=== PATIENT | female | born 1990 | race Caucasian/White ===

== ENCOUNTER → 2017-06-10 | Outpatient (CLI) | payer MEDICAID ==
[~2017-06-10] MED LIST: FERR325T18 PO; TRICTAB PO
== END ==
LOC: HPND 10:15
PROVIDERS: ATTEND Family Medicine
DX: O26.842 Uterine size-date discrepancy, second trimester (principal)
CPT/HCPCS: 76805

== ENCOUNTER 2017-11-06 12:14 | Inpatient (IN) ==
[~2017-11-06 12:14] MED LIST changes: -FERR325T18 PO; +Ketorolac Inj 30 MG/ML (IVP) Vial IV.PUSH ONE; +Phenylephrine/NS 1000 MCG/10ML Syringe IV.PUSH ONE; -TRICTAB PO
[2017-11-06] MEDS ORDERED: Citric Acid/Sodium Citrate Liq 30 ML UDC PO SCH (12:30)
--- NOTE | 2017-11-06 12:44 | P.HPOB ---
History of Present Illness Primary Care Physician: Anna Avina MD, R2 History of Present Illness: 27-year-old female, at 40 weeks gestation, history of previous for breech 1, presents for repeat scheduled today. She denies any contractions. Denies any leakage of fluid. Denies any vaginal bleeding. Positive movement. - Inpatient Certification I certify that the inpatient services were ordered in accordance with Medicare regulations governing the order. This includes certification that hospital inpatient services are reasonable and necessary and in the case of services not specified as inpatient-only under 42 CFR 419.22(n), that they are appropriately provided as inpatient services in accordance to with the 2-midnight benchmark under 43 CFR 412.3(e) Estimated Total Length of Stay (Days): 3 Plans for Post Hospital Care: Home Review of Systems All other systems reviewed negative except as stated in HPI PMFSH - History History Provided By: Patient - Medical / Surgical Hx Neg / Unobtainable Medical Problems Denied: Yes - Medical History Medical History: Medical History (Last Updated 11/06/17 @ 12:43 by Anna Avina MD, R2) Anemia affecting Rh negative state in antepartum period - Surgical History Surgical History: Surgical History (Last Updated 11/06/17 @ 12:43 by Anna Avina MD, R2) Previous section - Tobacco History Second Hand Smoke Exposure: No Tobacco Use In Past 30 Days: No Smoking Status: Never smoker - Alcohol History How Often Do You Have a Drink Containing Alcohol: Never - Substance Use History Substance History: No History of Abuse - Travel History History of Recent Travel: No Recent Travel in the [place] Within the Last 8 Weeks: No Recent Travel Out of the Country Within the Last 8 Weeks: No Medications and Allergies Active Medications: Active Medications Citric Acid/Sodium Citrate (Sodium Citrate/Citric Acid Liq) 30 ml PO [employer] TARA Stop: 11/10/17 12:29 Cefazolin Sodium 2,000 mg/ (Sodium Chloride) 100 mls @ 200 mls/hr IV.SIG [employer] TARA Stop: 11/10/17 12:59 Lactated Ringer's (Lr 1000 Ml Inj) 1,000 mls @ 2,000 mls/hr IV.SIG .Q30M ONE Stop: 11/06/17 12:47 Lactated Ringer's (Lr 1000 Ml Inj) 1,000 mls @ 150 mls/hr IV.CONT .Q6H40M TARA Allergies Allergy/AdvReac Type Severity Reaction Status Date / Time No Known Allergies Allergy Verified 11/06/17 13:01 Exam Vital signs: Vital Signs 11/06/17 12:29 Temperature 98.1 F Pulse Rate 92 H Respiratory Rate 18 Blood Pressure 131/86 Narrative: FH: 41 - Constitutional no acute distress - Routine Respiratory Exam Present: CTA bilaterally - Routine Cardiovascular Exam Present: RRR, S1, S2 - Routine Extremities Exam Present: normal capillary refill. Absent: edema, calf tenderness Results - Labs CBC & Chem 7: 11/06/17 12:55 Caprini VTE Risk Assessment Caprini VTE Risk Assessment: No/Low Risk (score <= 1) Caprini Risk Assessment Model: Point Value = 1 Point Value = 2 Point Value = 3 Point Value = 5 Age 41-60 Minor surgery BMI > 25 kg/m2 Swollen legs Varicose veins or History of unexplained or recurrent spontaneous Oral contraceptives or hormone replacement Sepsis (< 1 month) Serious lung disease, including pneumonia (< 1 month) Abnormal pulmonary function Acute myocardial infarction Congestive heart failure (< 1 month) History of inflammatory bowel disease Medical patient at bed rest Age 61-74 Arthroscopic surgery Major open surgery (> 45 min) Laparoscopic surgery (> 45 min) Malignancy Confined to bed (> 72 hours) Immobilizing plaster cast Central venous access Age >= 75 History of VTE Family history of VTE Factor V Leiden Prothrombin [id number] Lupus anticoagulant Anticardiolipin antibodies Elevated serum homocysteine Heparin-induced thrombocytopenia Other congenital or acquired thrombophilia Stroke (< 1 month) Elective arthroplasty Hip, pelvis, or leg fracture Acute spinal cord injury (< 1 month) Prophylaxis Regimen: Total Risk Factor Score Risk Level Prophylaxis Regimen 0-1 Low Early ambulation 2 Moderate Order ONE of the following: *Sequential Compression Device (SCD) *Heparin 5000 units SQ BID 3-4 Higher Order ONE of the following medications: *Heparin 5000 units SQ TID *Enoxaparin/Lovenox 40 mg SQ daily (WT < 150 kg, CrCl > 30 mL/min) *Enoxaparin/Lovenox 30 mg SQ daily (WT < 150 kg, CrCl > 10-29 mL/min) *Enoxaparin/Lovenox 30 mg SQ BID (WT < 150 kg, CrCl > 30 mL/min) AND/OR *Sequential Compression Device (SCD) 5 or more Highest Order ONE of the following medications: *Heparin 5000 units SQ TID (Preferred with Epidurals) *Enoxaparin/Lovenox 40 mg SQ daily (WT < 150 kg, CrCl > 30 mL/min) *Enoxaparin/Lovenox 30 mg SQ daily (WT < 150 kg, CrCl > 10-29 mL/min) *Enoxaparin/Lovenox 30 mg SQ BID (WT < 150 kg, CrCl > 30 mL/min) AND *Sequential Compression Device (SCD) Assessment and Plan - Diagnosis (1) Code(s): Z34.90 - Encounter for supervision of normal , unspecified, unspecified trimester Status: Acute (2) Previous section complicating , with delivery Code(s): O34.219 - Maternal care for unspecified type scar from previous delivery Status: Acute - Plan 27-year-old female, at 40 weeks gestation, history of previous for breech 1, presents for repeat scheduled today. REPEAT C/S -N.p.o. since midnight -Scheduled for at 2 PM -Preoperative antibiotics initiated Rh negative -Status post RhoGam at 28 weeks -Need RhoGam within 72 hours Anemia of -Initial hemoglobin on admission 10.2 -Follow-up CBC GBS positive -Standard preoperative antibiotics as above
[2017-11-06] MEDS ORDERED: ceFAZolin Inj 2,000 MG in Sodium Chlor 0.9% Inj 80 ML IV.SIG SCH ×2 (13:00→22:00)
[2017-11-06 13:10] LABS: Bacteria,Urine Rare /hpf; Bilirubin,Urine Negative (Negative); Clarity,Urine Hazy (Clear); Color,Urine Yellow (Yellw/Straw); Glucose,Urine (UA) Negative (Negative); Leukocyte Esterase,Urine Negative (Negative); Mucus,Urine Few /lpf (Occasional); Nitrite,Urine Negative (Negative); Specific Gravity,Urine 1.005 (1.002-1.035); Squamous Epithelial Cell,Urine 10 /hpf (0-5)
[2017-11-06 13:11] LABS: Baso % (Auto) 0.2 % (0.0-2.0); Eos # (Auto) 0.1 th/mm3 (0.0-0.4); Eos % (Auto) 0.4 % (0.0-4.0); Hematocrit 32.6 % (35.0-46.0); Hemoglobin 10.2 gm/dL (11.6-15.3); Mean Corpuscular HGB Conc 31.4 % (32.0-36.0); Mean Corpuscular Volume 79.6 fL (80.0-100.0); Mean Platelet Volume 9.6 fL (7.0-11.0); Mono # (Auto) 0.7 th/mm3 (0.0-0.9); Neut # (Auto) 9.5 th/mm3 (1.8-7.7); Neut % (Auto) 77.4 % (16.0-70.0); Platelet Count 392 th/mm3 (150-450); Red Cell Distribution Width 15.9 % (11.6-17.2); White Blood Count 12.3 th/mm3 (4.0-11.0)
[2017-11-06 13:23] LABS: Amphetamine Screen,Urine Neg (Neg); Barbiturate Screen,Urine Neg (Neg); Cannabinoid Screen,Urine Neg (Neg); Cocaine Screen,Urine Neg (Neg); Opiate Screen,Urine Neg (Neg)
[2017-11-06] MEDS ORDERED: Morphine Sulfate PF Inj 5 MG/10 ML Ampul ONE (13:48)
[2017-11-06 13:49] LABS: Platelet Estimate Normal (Normal); Platelet Morphology Normal (Normal)
[2017-11-06] MEDS ORDERED: ceFAZolin 2 GM Premix Inj 2 GM/50 ML PIGGYBACK IV.SIG ONE (14:00)
[2017-11-06] MEDS ORDERED: Oxytocin 30 Units/500ml Premix 30 UNITS/500 ML BAG IV.SIG ONE (15:36)
[2017-11-06] MEDS ORDERED: Simethicone 80 MG Chew Tablet PO PRN (15:36)
[2017-11-06] MEDS ORDERED: Senna/Docusate Sodium 8.6/50 MG Tablet PO PRN (15:36)
--- NOTE | 2017-11-06 16:04 | P.OP ---
- Preoperative Diagnosis (1) Previous section complicating , with delivery - Postoperative Diagnosis (1) Previous section complicating , with delivery Comment: Patient is a 39 week intrauterine previous for repeat section refuses Date of procedure: 11/06/17 Procedure: Repeat low transverse section Anesthesia: regional Surgeon: Jomar Pearson MD Hide Shaker: [facility]. [facility] Estimated blood loss (mL): 500 IV fluids (mL): 1,000 Urine output (mL): 100 Pathology: none sent Operation and Findings: Patient was taken the operating room placed supine position on the table after adequate spinal anesthesia the patient was prepped and draped for abdominal surgery. Previous Pfannenstiel incision was excised out of the cast off. Incision carried the fascia sharply and the fascia incised laterally in the usual fashion. The fascia reflected off the rectus muscle. Peritoneal cavity entered bluntly and incision extended superior and inferiorly. The bladder blade placed lower the incision and the parietal peritoneum reflected off the lower uterine segment sharply. Bladder was placed behind the bladder blade and a transverse hysterotomy was made and extended bluntly bilaterally, amniotic fluid clear baby delivered from a cephalic presentation without difficulty male weight 3625 g 9 /9 there were no complications. Cord blood obtained the delayed cord clamping was done. The placenta then manually extracted without difficulty. The uterus exteriorized cleaned of all remnants of membranes. The cervix dilated. The hysterotomy closed in a running layer of 0 chromic followed by imbricating suture of the same hemostasis achieved with a couple stick ties. Bladder reapproximated with a running suture 2-0 Vicryl. Uterus elevated ovaries and tubes noted to be normal. The blood suctioned cul-de-sac the uterus replaced in the peritoneal cavity. Gutters evaluated noted to be within normal limits. The parietal peritoneum closed in a running layer of 2-0 Vicryl. Rectus muscle reapproximated with stick ties of chromic Vicryl. The fascia closed in running layer of 0 Vicryl. Subcutaneous tissues closed with a running 3-0 plain catgut suture. The skin closed with a José Miguel needle 3-0 Monocryl suture subcutaneously. Steri-Strips pressure dressing applied. At my blood loss 500 cc with no complications sponge and needle correct 2 and the patient to recovery in stable condition the significant dictation
[2017-11-06] MEDS ORDERED: Naloxone Inj 0.4 MG/ML Vial IV.PUSH PRN (17:17)
[2017-11-06] MEDS ORDERED: Oxytocin 30 Units/500ml Premix 30 UNITS/500 ML BAG IV.SIG PRN (20:36)
[2017-11-06] MEDS: ceFAZolin 2 GM Premix Inj 2 GM/50 ML PIGGYBACK IV.SIG SCH (22:53)
[2017-11-07] MEDS: ceFAZolin 2 GM Premix Inj 2 GM/50 ML PIGGYBACK IV.SIG SCH (05:18)
--- NOTE | 2017-11-07 08:11 | P.PNOB ---
Subjective Post op day: 1 Interval history: Pt seen and examined this AM. Patient has been eating and drinking since directly after the delivery, with no nausea or vomiting. Patient had Munguia removed this morning and has not yet voided. Patient has been ambulating this morning. She does not report any drainage from the incision. Pain is well controlled on current medications. Patient denies any chest pain/shortness of breath/dizziness. She denies any calf tenderness. Objective Vital Signs/I&O: Vital Signs 11/06/17 12:29 11/06/17 13:00 11/06/17 13:31 Temperature 98.1 F Pulse Rate 92 H 86 98 H Respiratory Rate 18 Blood Pressure 131/86 122/68 113/62 11/06/17 15:45 11/06/17 16:00 11/06/17 16:15 Temperature 97.5 F L Pulse Rate 80 90 79 Respiratory Rate 19 18 18 Blood Pressure 114/62 105/56 L 116/58 L 11/06/17 16:30 11/06/17 16:55 11/06/17 20:00 Temperature 97.8 F 98.0 F 98.7 F Pulse Rate 71 82 114 H Respiratory Rate 18 18 19 Blood Pressure 119/56 L 122/69 106/64 11/06/17 23:52 11/07/17 03:31 Temperature 98.9 F 98.4 F Pulse Rate 96 H 83 Respiratory Rate 18 18 Blood Pressure 97/54 L 110/64 Intake & Output 11/06/17 11/07/17 11/07/17 18:59 06:59 18:59 Intake Total 50 / 50 Balance 50 / 50 Weight 69.853 kg Intake: IV 50 / 50 Ancef 2 GM Premix Inj 2 gm In 50 / 50 50 ml @ 100 mls/hr IV.SIG Q8H TARA Rx#:[id number] Other: Weight On Admission 69.853 kg Result Diagrams: 11/06/17 12:55 Objective Remarks: GENERAL: Well-nourished, well-developed patient. CARDIOVASCULAR: Regular rate and rhythm without murmurs, gallops, or rubs. RESPIRATORY: Breath sounds equal bilaterally. No accessory muscle use. ABDOMEN/GI: Abdomen soft, non-tender, bowel sounds present. Incision: Pressure dressing intact. No drainage from dressing. Fundus: Firm, non-tender at umbilicus. GENITOURINARY: Light to moderate bleeding. EXTREMITIES: No cyanosis or edema, non-tender, without signs of DVT. Medications and IVs: Active Medications Citric Acid/Sodium Citrate (Sodium Citrate/Citric Acid Liq) 30 ml PO PRO[employer]AD [facility] Stop: 11/10/17 12:29 Last Admin: 11/06/17 13:51 Dose: 30 ml Diphenhydramine HCl (Benadryl) 50 mg PO Q6H PRN PRN Reason: MILD TO MODERATE ITCHING Stop: 11/07/17 13:59 Diphenhydramine HCl (Benadryl Inj) 25 mg IV.PUSH Q6H PRN PRN Reason: MILD TO MODERATE ITCHING Stop: 11/07/17 13:59 Diphtheria/Pertussis/Tetanus Vacc (Boostrix Vaccine Inj) 0.5 ml IM .ONCE ONE Stop: 11/07/17 16:01 Lactated Ringer's (Lr 1000 Ml Inj) 1,000 mls @ 150 mls/hr IV.CONT .Q6H40M [facility] Lactated Ringer's (Lr 1000 Ml Inj) 1,000 mls @ 100 mls/hr IV.CONT .Q10H [facility] Stop: 11/07/17 16:35 Last Admin: 11/06/17 22:54 Dose: 100 mls/hr Oxytocin (Pitocin 30 Units/Ns 500 Ml Premix) 30 units in 500 mls @ 100 mls/hr IV.SIG PRN PRN PRN Reason: Heavy bleeding Stop: 11/07/17 20:35 Ketorolac Tromethamine (Toradol Inj) 30 mg IM Q6H PRN PRN Reason: SEE LABEL COMMENTS Stop: 11/07/17 15:35 Measles/Mumps/Rubella Vaccine Live (M-M-R Ii Vaccine Inj) 0.5 ml SQ .ONCE ONE Stop: 11/07/17 16:01 Miscellaneous Information ([facility] Nursing Information) 1 each OTHER UNSCH PRN PRN Reason: SEE LABEL COMMENTS Stop: 11/07/17 17:16 Miscellaneous Information ([facility] Nursing Information) 1 each OTHER UNSCH PRN PRN Reason: SEE LABEL COMMENTS Stop: 11/07/17 17:16 Naloxone HCl (Narcan Inj) 0.4 mg IV.PUSH UNSCH PRN PRN Reason: SEE LABEL COMMENTS Stop: 11/07/17 17:16 Oxycodone/Acetaminophen (Percocet 5/325 Mg) 1 tab PO Q4H PRN PRN Reason: PAIN SCALE 3 TO 5 Last Admin: 11/07/17 03:05 Dose: 1 tab Oxycodone/Acetaminophen (Percocet 5/325 Mg) 2 tab PO Q4H PRN PRN Reason: PAIN SCALE 6 TO 10 Senna/Docusate Sodium (Cony-Colace) 2 tab PO Q12H PRN PRN Reason: CONSTIPATION Simethicone (Mylicon Chew) 80 mg PO QID PRN PRN Reason: FLATULENCE Sodium Chloride (Ns Flush) 2 ml IV.FLUSH BID TARA Sodium Chloride (Ns Flush) 2 ml IV.FLUSH PRN PRN PRN Reason: FLUSH AFTER USING IV ACCESS Assessment and Plan - Diagnosis (1) Previous section complicating , with delivery Code(s): O34.219 - Maternal care for unspecified type scar from previous delivery Status: Acute Plan: , postop day #1 from scheduled repeat at 40 weeks Continue regular postop care Continue to monitor for void after Munguia removal Follow-up CBC this morning Patient needs RhoGam before discharge We will recheck incision in a.m.
[2017-11-07 10:22] LABS: Baso % (Auto) 0.1 % (0.0-2.0); Eos % (Auto) 0.1 % (0.0-4.0); Hematocrit 21.8 % (35.0-46.0); Lymph # (Auto) 2.2 th/mm3 (1.0-4.8); Lymph % (Auto) 14.2 % (9.0-44.0); Mean Corpuscular HGB Conc 32.1 % (32.0-36.0); Mean Corpuscular Hemoglobin 25.5 pg (27.0-34.0); Mean Corpuscular Volume 79.2 fL (80.0-100.0); Mean Platelet Volume 9.4 fL (7.0-11.0); Mono % (Auto) 6.6 % (0.0-8.0); Neut # (Auto) 12.3 th/mm3 (1.8-7.7); Platelet Count 276 th/mm3 (150-450); Red Blood Count 2.76 mil/mm3 (4.00-5.30); Red Cell Distribution Width 15.8 % (11.6-17.2); White Blood Count 15.6 th/mm3 (4.0-11.0)
[2017-11-07] MEDS ORDERED: Diphtheria/Tetanus/Pertussis Vaccine Inj 0.5 ML Syringe IM ONE (16:00)
[2017-11-07] MEDS ORDERED: Measles/Mumps/Rubella Vaccine Inj 0.5 ML Vial SQ ONE (16:00)
[2017-11-07 17:31] VITALS: O2SAT 98
[2017-11-07 20:54] VITALS: BP 107/64; PULSE 108; RESP 18; TEMP 98.3
--- NOTE | 2017-11-08 08:31 | P.PNOB ---
Subjective Post day: 2 Interval history: Patient is a 27-year-old delivered at 40 weeks. Patient is day 2 after . Patient's pain is well-controlled. Patient reports eating and drinking without any nausea or vomiting. Patient reports minimal bleeding. Patient has passed gas but no bowel movements. Patient is walking without lower extremity pain or shortness of breath. Patient plans to discuss contraception with PCP later date. denies dizziness/lightheadedness. Objective Vital Signs/I&O: Vital Signs 11/07/17 12:00 11/07/17 17:30 11/07/17 20:00 Temperature 97.6 F 99.0 F 98.3 F Pulse Rate 87 83 108 H Respiratory Rate 18 16 18 Blood Pressure 108/67 102/55 L 107/64 Pulse Oximetry 98 Intake & Output 11/07/17 11/08/17 11/08/17 18:59 06:59 18:59 Intake Total 0 / 0 Balance 0 / 0 Intake: Intake (Blood Product) Amt 0 / 0 Rho(D) Immune Globulin Unit 0 / 0 [id number] Result Diagrams: 11/07/17 08:32 Objective Remarks: GENERAL: Well-nourished, well-developed patient. CARDIOVASCULAR: Regular rate and rhythm without murmurs, gallops, or rubs. RESPIRATORY: Breath sounds equal bilaterally. No accessory muscle use. ABDOMEN/GI: Abdomen soft, non-tender. Incision is clean dry and intact. Fundus: Firm, non-tender at umbilicus. GENITOURINARY: Light to moderate bleeding. EXTREMITIES: No cyanosis or edema, non-tender, without signs of DVT. Medications and IVs: Active Medications Citric Acid/Sodium Citrate (Sodium Citrate/Citric Acid Liq) 30 ml PO [employer] [facility] Stop: 11/10/17 12:29 Last Admin: 11/06/17 13:51 Dose: 30 ml Lactated Ringer's (Lr 1000 Ml Inj) 1,000 mls @ 150 mls/hr IV.CONT .Q6H40M [facility] Ibuprofen (Motrin) 800 mg PO Q8H PRN PRN Reason: ABDOMINAL CRAMPING Oxycodone/Acetaminophen (Percocet 5/325 Mg) 1 tab PO Q4H PRN PRN Reason: PAIN SCALE 3 TO 5 Last Admin: 11/08/17 06:12 Dose: 1 tab Oxycodone/Acetaminophen (Percocet 5/325 Mg) 2 tab PO Q4H PRN PRN Reason: PAIN SCALE 6 TO 10 Senna/Docusate Sodium (Cony-Colace) 2 tab PO Q12H PRN PRN Reason: CONSTIPATION Last Admin: 11/07/17 21:11 Dose: 2 tab Simethicone (Mylicon Chew) 80 mg PO QID PRN PRN Reason: FLATULENCE Sodium Chloride (Ns Flush) 2 ml IV.FLUSH BID TARA Last Admin: 11/07/17 21:42 Dose: Not Given Sodium Chloride (Ns Flush) 2 ml IV.FLUSH PRN PRN PRN Reason: FLUSH AFTER USING IV ACCESS Assessment and Plan - Diagnosis (1) delivery, delivered, current hospitalization Code(s): O82 - Encounter for delivery without indication Status: Acute Plan: asymptomatic anemia will repeat h/h at 11 am possible d/c home today - Plan 27-year-old female, at 40 weeks gestation, history of previous for breech 1, presents for repeat scheduled today. REPEAT C/S - - Attending Attestation The exam, history, and the medical decision-making described in the above note were completed with the assistance of the resident physician. I reviewed and agree with the findings presented. I attest that I had a [id number] encounter with the patient on the same day, and personally performed and documented my assessment and findings in the medical record.
[2017-11-08 10:39] LABS: Hematocrit 21.4 % (35.0-46.0); Hemoglobin 6.7 gm/dL (11.6-15.3)
== END 2017-11-08 12:27 | disposition home or self-care (01) ==
LOC: H2E 12:14 → H1EA 16:56
PROVIDERS: ADMIT Obstetrics & Gynecology Maternal & Fetal Medicine; ATTEND Obstetrics & Gynecology Maternal & Fetal Medicine